=== PATIENT | female | born 1990 | race Caucasian/White ===

== ENCOUNTER 2020-10-20 18:49 | Inpatient (IN) | payer MEDICAID, OTHER ==
[~2020-10-20] VITALS: Ht 167.6 cm; Wt 163.3 kg
[2020-10-20] MEDS ORDERED: LABE200T9 PO (20:57)
[2020-10-20] MEDS ORDERED: PNV1TABL76 PO (20:57)
[2020-10-21] MEDS ORDERED: RHO(D) IMMUNE GLOBULIN 300 MCG/SYR IM PRN (01:00)
[2020-10-21] MEDS ORDERED: LACTATED RINGERS 1,000 ML IV SCH (01:30)
[2020-10-21 02:20] LABS: BASOPHILS % 0.6 % (0.0-2.0); EOSINOPHILS % 2.8 % (0.0-5.0); HEMATOCRIT. 35.4 % (36.0-48.0); HEMOGLOBIN. 11.8 g/dL (12.0-16.0); LYMPHOCYTES % 20.3 % (20.0-50.0); MEAN CORPUSCULAR HEMOGLOBIN 29.9 pg (28.0-32.0); MEAN CORPUSCULAR VOLUME 89.6 fL (81.0-99.0); MEAN PLATELET VOLUME 9.6 fl (7.4-10.4); MONOCYTES % 6.2 % (2.0-8.0); NEUTROPHILS % 70.1 % (40.0-76.0); PLATELET 258 x1000/uL (130-400); RED BLOOD CELL COUNT 3.95 mill/uL (4.2-5.4); RED CELL DISTRIBUTION WIDTH 13.7 % (11.6-14.6)
[2020-10-21 02:41] LABS: PARTIAL THROMBOPLASTIN TIME 26.2 sec (23.4-31.0); PROTHROMBIN TIME 10.4 sec (9.6-11.0)
[2020-10-21 02:43] LABS: *AMPHETAMINES SCREEN URINE NEGATIVE (NEGATIVE); *BARBITURATES SCREEN URINE NEGATIVE (NEGATIVE); *BENZODIAZEPINES SCREEN URINE NEGATIVE (NEGATIVE); *COCAINE SCREEN URINE NEGATIVE (NEGATIVE)
[2020-10-21 02:44] LABS: METHADONE URINE SCREEN NEGATIVE (NEGATIVE); OPIATES URINE SCREEN NEGATIVE (NEGATIVE)
[2020-10-21 02:45] LABS: PHENCYCLIDINE URINE SCREEN NEGATIVE (NEGATIVE)
[2020-10-21 02:46] LABS: CANNABINOID URINE SCREEN NEGATIVE (NEGATIVE)
[2020-10-21 02:47] LABS: CLARITY URINE CLEAR (CLEAR); COLOR URINE YELLOW (YELLOW); KETONES URINE NEGATIVE (NEGATIVE); NITRITE URINE NEGATIVE (NEGATIVE); OCCULT BLOOD URINE NEGATIVE (NEGATIVE); PROTEIN URINE NEGATIVE (NEGATIVE); SPECIFIC GRAVITY URINE 1.011 (1.005-1.030)
[2020-10-21 02:48] LABS: LEUKOCYTE ESTERASE URINE NEGATIVE (NEGATIVE); UROBILINOGEN URINE 0.2 E.U./dL (0.2-1.0)
[2020-10-21 03:08] LABS: HEPATITIS B SURFACE ANTIGEN NEGATIVE
[2020-10-21] MEDS ORDERED: DEXTROSE 50% WATER 50ML SYRINGE IV PRN (06:45)
[2020-10-21] MEDS ORDERED: INSULIN LISPRO 100 UNITS/ML SUBCUT SCH (09:00)
[2020-10-21] MEDS ORDERED: LABETALOL HCL 200MG TABLET PO SCH (09:00)
== END 2020-10-21 12:45 | disposition home or self-care (01) | DRG 566 ==
LOC: 8EST NSY 18:49 → OBSVTOIN 18:49 → 8 EST A/PP 19:29
PROVIDERS: ADMIT Obstetrics & Gynecology; ATTEND Obstetrics & Gynecology
DX: O41.03X0 Oligohydramnios, third trimester, not applicable or unspecified (principal); O10.913 Unspecified pre-existing hypertension complicating pregnancy, third trimester; O34.211 Maternal care for low transverse scar from previous cesarean delivery; Z3A.34 34 weeks gestation of pregnancy; Z80.8 Family history of malignant neoplasm of other organs or systems
CPT/HCPCS: 36415; 76805; 76815; 76818; 80305; 81003; 82962; 84550; 85025; 85384; 86592; 86703; 86762; 86850; 86900; 87340; 96360; 99281; G0378; J7120

== ENCOUNTER 2020-10-24 15:28 | Observation (INO) | payer MEDICAID ==
[~2020-10-24 15:28] MED LIST: LABE200T9 PO; PNV1TABL76 PO
[2020-10-25] MEDS ORDERED: FERROUS SULFATE (22:21)
== END 2020-10-24 16:54 | disposition home or self-care (01) ==
LOC: L&D 15:28 → 8 EST LDRP 15:45
PROVIDERS: ADMIT Obstetrics & Gynecology; ATTEND Obstetrics & Gynecology
DX: O36.8130 Decreased fetal movements, third trimester, not applicable or unspecified (principal); O26.893 Other specified pregnancy related conditions, third trimester; R10.9 Unspecified abdominal pain; Z3A.34 34 weeks gestation of pregnancy
CPT/HCPCS: G0378

== ENCOUNTER 2020-10-25 18:42 | Observation (INO) | payer MEDICAID ==
[~2020-10-25] VITALS: Ht 167.6 cm; Wt 163.3 kg
[2020-10-25] MEDS ORDERED: MISOPROSTOL 200MCG TABLET VG SCH (19:00)
[2020-10-25] MEDS ORDERED: DEXT 5%/LR + PITOCIN 20UNITS/L 1,000 ML IV SCH (19:00)
[2020-10-25] MEDS ORDERED: NALOXONE HCL 0.4 MG/ML 1ML VIAL IM PRN (19:00)
[2020-10-25] MEDS ORDERED: CARBOPROST TROMETHAMINE 250 MCG/ML AMPUL IM PRN (19:00)
[2020-10-25] MEDS ORDERED: METHYLERGONOVINE MALEATE 0.2 MG/ML IM PRN (19:00)
[2020-10-25 19:36] LABS: BASOPHILS % 0.4 % (0.0-2.0); HEMATOCRIT. 36.4 % (36.0-48.0); HEMOGLOBIN. 12.3 g/dL (12.0-16.0); LYMPHOCYTES % 21.6 % (20.0-50.0); MEAN CORPUSCULAR HEMOGLOBIN 29.2 pg (28.0-32.0); MEAN CORPUSCULAR VOLUME 86.3 fL (81.0-99.0); MONOCYTES % 5.7 % (2.0-8.0); NEUTROPHILS % 70.3 % (40.0-76.0); PLATELET 279 x1000/uL (130-400); RED BLOOD CELL COUNT 4.22 mill/uL (4.2-5.4); RED CELL DISTRIBUTION WIDTH 13.8 % (11.6-14.6)
[2020-10-25 19:41] LABS: CLARITY URINE CLEAR (CLEAR); COLOR URINE YELLOW (YELLOW); KETONES URINE NEGATIVE (NEGATIVE); LEUKOCYTE ESTERASE URINE NEGATIVE (NEGATIVE); NITRITE URINE NEGATIVE (NEGATIVE); OCCULT BLOOD URINE NEGATIVE (NEGATIVE); PH URINE 5.5 (4.5-8.0); PROTEIN URINE 1+ (NEGATIVE); SPECIFIC GRAVITY URINE 1.024 (1.005-1.030); UROBILINOGEN URINE 0.2 E.U./dL (0.2-1.0)
[2020-10-25 19:51] LABS: INR 0.9; PARTIAL THROMBOPLASTIN TIME 25.3 sec (23.4-31.0); PROTHROMBIN TIME 10.2 sec (9.6-11.0)
[2020-10-25 19:52] LABS: *AMPHETAMINES SCREEN URINE NEGATIVE (NEGATIVE); *BARBITURATES SCREEN URINE NEGATIVE (NEGATIVE); *BENZODIAZEPINES SCREEN URINE NEGATIVE (NEGATIVE); *COCAINE SCREEN URINE NEGATIVE (NEGATIVE)
[2020-10-25 19:53] LABS: CANNABINOID URINE SCREEN NEGATIVE (NEGATIVE); METHADONE URINE SCREEN NEGATIVE (NEGATIVE); OPIATES URINE SCREEN NEGATIVE (NEGATIVE); PHENCYCLIDINE URINE SCREEN NEGATIVE (NEGATIVE)
[2020-10-25 20:18] LABS: HEPATITIS B SURFACE ANTIGEN NEGATIVE
[2020-10-25] MEDS: LABETALOL HCL 200MG TABLET PO SCH (20:45)
[2020-10-25] MEDS: LACTATED RINGERS 1,000 ML IV SCH (20:46)
[2020-10-25 21:41] LABS: CHLORIDE 108 mEq/L (98-107)
[2020-10-25] MEDS ORDERED: FERROUS SULFATE (22:21)
[2020-10-25] MEDS ORDERED: ACETAMINOPHEN 325MG TABLET PO PRN (23:30)
[2020-10-25] MEDS ORDERED: CITRIC ACID/SODIUM CITRATE SOLN 30ML UDC PO NR (23:30)
[2020-10-26] MEDS: LACTATED RINGERS 1,000 ML IV SCH ×2 (02:52→02:53)
[2020-10-26] MEDS: LABETALOL HCL 200MG TABLET PO SCH ×2 (06:48→13:24)
[2020-10-26] MEDS ORDERED: INS NPH/REG HM 70-30 100 UNITS/ML 10ML VIAL (HUMULIN 70-30) SUBCUT ONE (11:30)
[2020-10-26] MEDS ORDERED: INSULIN LISPRO 100 UNITS/ML SUBCUT SCH (11:30)
== END 2020-10-26 13:55 | disposition home or self-care (01) ==
LOC: 8 EST LDRP 18:42
PROVIDERS: ADMIT Obstetrics & Gynecology; ATTEND Obstetrics & Gynecology
DX: O13.3 Gestational [pregnancy-induced] hypertension without significant proteinuria, third trimester (principal); Z3A.38 38 weeks gestation of pregnancy
CPT/HCPCS: 36415; 76805; 76818; 80053; 80305; 81003; 82575; 82962; 84156; 84550; 85025; 85384; 85610; 85730; 86592; 86703; 86762; 86850; 86900; 86901; 87340; 96360; 96361; G0378; J1815; 86920; A4315